=== PATIENT | male | born 1955 | race Caucasian/White ===

== ENCOUNTER 2019-07-18 03:13 | Emergency (ER) | payer BC ==
--- NOTE | 2019-07-18 04:12 | ED ---
Hypertension - HPI Summary HPI Summary: This patient is a 64 year old M presenting to [facility] accompanied by his with a chief complaint of uncontrollable BP since earlier today. Pt states he just moved to [place] and did a lot of heavy lifting. He thinks his uncontrollable BP was due to this. Pt did not take his Losartan medication for a few months until 2 days ago. The patient rates the pain 3/10 in severity. Symptoms aggravated by nothing. Symptoms alleviated by nothing. Patient reports burning sensation before urination, back pain. Patient denies fever, nausea, vomiting, diarrhea, ABD pain. Pt has a hx of ulcers, kidney stones, but denies heart problems. Pt does not smoke or use recreational drugs, but occasionally drinks alcohol. 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 negative - fever, nausea, vomiting, diarrhea, ABD pain. - Allergies/Home Medications Allergies/Adverse Reactions: Allergies Allergy/AdvReac Type Severity Reaction Status Date / Time amoxicillin Allergy Rash And Verified 07/18/19 03:19 Itching Home Medications: Home Medications Losartan Potassium 50 mg PO DAILY 07/18/19 [History Confirmed 07/18/19] PMH/Surg Hx/FS Hx/Imm Hx Previously Healthy: No GI History: Reports: Hx Ulcer History: Reports: Hx Kidney Stones - Surgical History Surgical History: Yes Infectious Disease History: No Infectious Disease History: Denies: Traveled Outside the [place] in Last 30 Days - Family History Known Family History: Positive: None - Social History Alcohol Use: Occasionally Substance Use Type: Reports: None Smoking Status (MU): Former Smoker Review of Systems Negative: Fever Cardiovascular: Other - posititve - uncontrollable BP Negative: Abdominal Pain, Vomiting, Diarrhea, Nausea Genitourinary: Other - positive - burning sensation before urination Musculoskeletal: Other - positive - back pain Positive: Other All Other Systems Reviewed And Are Negative: Yes Physical Exam - Summary Physical Exam Summary: General: Well-developed, Well-nourished MALE. No acute distress. HEENT: Normocephalic, Atraumatic. Eyes: Conjuctiva normal, PERRL. Ears: TMs within normal limits. Nares: (-) discharge, (-) erythema. Oropharynx: Clear, mucous membranes moist, (-) exudates. Neck: Soft, FROM, (-) lymphadenopathy, (-) thyromegaly, (-) JVD. Cardiovascular: Normal sinus rhythm, (-) murmur. Lungs: Clear to auscultation bilaterally (-) wheezes, (-) rales, (-) rhonchi. Abdomen: Soft, non-tender, non-distended, (-) organomegaly, normal bowel sounds. Back: (-) CVA tenderness Extremities: No edema. Skin: Warm, dry, (-) rash. Neuro: Alert and oriented x3, no focal deficits. Psychiatric: Mood normal, affect normal. Mildly anxious appearing Triage Information Reviewed: Yes Vital Signs On Initial Exam: Initial Vitals Temp Pulse Resp BP Pulse Ox 97.5 F 75 15 182/90 95 07/18/19 03:15 07/18/19 03:15 07/18/19 03:15 07/18/19 03:15 07/18/19 03:15 Vital Signs Reviewed: Yes Procedures - Sedation Patient Received Moderate/Deep Sedation with Procedure: No Diagnostics - Vital Signs Vital Signs Temp Pulse Resp BP Pulse Ox 07/18/19 03:15 97.5 F 75 15 182/90 95 - Laboratory Result Diagrams: 07/18/19 04:25 07/18/19 04:25 Lab Statement: Any lab studies that have been ordered have been reviewed, and results considered in the medical decision making process. - Radiology CXR Radiology Interpretation Completed By: ED Physician Summary of Radiographic Findings: Impression: No infiltrate. No pleural effusion. - EKG 0409 Cardiac Rate: NL - 69 BPM EKG Rhythm: Sinus Rhythm Summary of EKG Findings: EKG at 0409 shows 69 BPM, sinus rhythm, no STEMI. Hypertension Course/Dx - Course Course Of Treatment: 64-year-old male with elevated blood pressure. Has been off his medication for months. Has been having pressure and pain in the head. Patient responded well to metoprolol. Continue losartan. Follow up with PCP, has an appointment on . Follow-up sooner for any worsening symptoms. - Diagnoses Provider Diagnoses: HTN (hypertension) Discharge ED - Sign-Out/Discharge Documenting (check all that apply): Patient Departure - discharge - Discharge Plan Condition: Stable Disposition: HOME Patient Education Materials: Chronic Hypertension (ED) Referrals: Mario De Leon MD [Primary Care Provider] - 3 Days Additional Instructions: Follow up with your primary care provider within 3 days. Return to the ED for any new or worsening symptoms. - Billing Disposition and Condition Condition: STABLE Disposition: Home - Attestation Statements Document Initiated by Gemmaibe: Yes Documenting Scribe: Mauricio Reddy Provider For Whom Wil is Documenting (Include Credential): Dr. Xiomara Ellison MD Scribe Attestation: Mauricio Hanks scribed for Dr. Xiomara Ellison MD on 07/18/19 at 0642. Scribe Documentation Reviewed: Yes Provider Attestation: The documentation as recorded by the Mauricio an accurately reflects the service I personally performed and the decisions made by me, Dr. Xiomara Ellison MD Status of Scribe Document: Viewed
[2019-07-18 04:45] LABS: ABS Eosinophils 0.3 10^3/ul (0-0.6); ABS Lymphocytes 1.7 10^3/ul (1.0-4.8); ABS Monocytes 0.7 10^3/ul (0-0.8); ABS Neutrophils 3.4 10^3/ul (1.5-7.7); Eosinophil % 4.2 %; Hematocrit 51 % (42-52); Hemoglobin 17.2 g/dL (14.0-18.0); Lymphocyte % 28.5 %; Mean Corpuscular HGB Conc 34 g/dL (31-36); Mean Corpuscular Hemoglobin 29 pg (27-31); Mean Corpuscular Volume 85 fL (80-94); Nucleated Red Blood Cells % 0.3; Platelet Count 176 10^3/uL (150-450); Red Blood Count 5.93 10^6 /uL (4.18-5.48); Red Cell Distribution Width 14 % (10-15); White Blood Count 6.1 10^3/uL (3.5-10.8)
[2019-07-18 04:59] LABS: Albumin 4.3 g/dL (3.2-5.2); Albumin/Globulin Ratio 1.4 (1-3); BUN/Creatinine Ratio 16.7 (8-20); Calcium 9.7 mg/dL (8.6-10.3); EGFR African American 83.8 (>60); EGFR Non-African American 69.3 (>60); Potassium 4.6 mmol/L (3.5-5.0); Total Bilirubin 0.6 mg/dL (0.2-1.0); Total Protein 7.3 g/dL (6.4-8.9)
[2019-07-18] MEDS ORDERED: Metoprolol Succinate XL TAB* 50 MG PO ONE (05:13)
[2019-07-18 05:20] LABS: Urine Appearance Clear; Urine Bilirubin Negative (Negative); Urine Blood Negative (Negative); Urine Color Yellow; Urine Glucose Negative (Negative); Urine Ketones Negative (Negative); Urine Nitrite Negative (Negative); Urine Protein Negative (Negative); Urine Specific Gravity 1.015 (1.010-1.030); Urine Urobilinogen Negative (Negative)
[2019-07-18 05:23] LABS: INR 0.94 (0.82-1.09)
[2019-07-18 06:43] VITALS: BP 163/110
[2019-07-18] MEDS ORDERED: Losartan TAB* 25 MG PO SCH (09:00)
== END 2019-07-18 06:41 | disposition home or self-care (01) ==
LOC: ED 03:13
DX: I10 Essential (primary) hypertension (principal); Z87.891 Personal history of nicotine dependence; Z79.899 Other long term (current) drug therapy; Z88.1 Allergy status to other antibiotic agents
CPT/HCPCS: 36415; 71045; 80053; 81003; 83605; 85025; 85610; 93005; 99282; A9270-GY